=== PATIENT | female | born 1995 | race African-American/Black ===

== ENCOUNTER 2019-05-11 23:37 | Emergency (ER) | payer OTHER ==
[~2019-05-11] VITALS: Ht 180.3 cm; Wt 61.2 kg
[2019-05-12] MEDS ORDERED: KETO10TA2 PO (01:22)
== END 2019-05-12 02:34 | disposition home or self-care (01) ==
LOC: ER 23:37
DX: S62.347A Nondisplaced fracture of base of fifth metacarpal bone, left hand, initial encounter for closed fracture (principal); W22.8XXA Striking against or struck by other objects, initial encounter; Y93.89 Activity, other specified; Y92.89 Other specified places as the place of occurrence of the external cause; Y99.8 Other external cause status

== ENCOUNTER 2022-03-14 18:09 | Inpatient (IN) | payer OTHER ==
[~2022-03-14] VITALS: Ht 185.4 cm; Wt 68.0 kg
[~2022-03-14 18:09] MED LIST: KETO10TA2 PO
--- NOTE | 2022-03-14 18:24 | NUR ---
SE RECIBE MASCULINO INCOSCIENTE, PALIDO Y SUDOROSO EN [place] EN COMPANIA DE PADRE EL CUAL INDICA QUE AL LLEGAR AL APARMENTO DEL PTE LO ENCONTRO TUTTLE EN EL SUELO. REFIERE QUE PTE ES USUARIO DE HEROINA. SE UBICA A PTE EN AREA DE OBSERVACION Y SE NOTIFICA A .
--- NOTE | 2022-03-14 18:41 | NUR ---
PTE MASCULINO HIPOACTIVO EN COMPANIA DE PADRE ES EVALUADO POR . SE ORIENTA A FAMILIAR SOBRE ORDEN DE TX REFIERE COMPRENDER. SE EXTRAEN MUESTRAS DE LABORATORIOS Y SE CANALIZA VENA BAJO MEDIDAS ASEPTICAS. SE ADMINISTRAN MEDICAMENTOS, BAJO MEDIDAS ASEPTICAS. SE CONECTA A MONITOR CARDIACO Y OXIMETRAIA DE PULSO.
--- NOTE | 2022-03-15 00:22 | NUR ---
PACIENTE ALERTA, RESPONDE AL LLAMADO Y A ESTIMULOS DEL DOLOR EN SULAIMAN CON BARANDAS ELEVADAS. PADRE ACOMPANANDO AL PACIENTE. SE ORIENTA A PADRE SOBRE TX A RECIBIR Y PROCEDIMIENTO A REALIZAR Y REFIRIO ENTENDER. SE ADMINISTRA MEDICAMENTOS ORDENADOS POR . SE REALIZA MUESTRAS DE LABORATORIO BAJO MEDIDAS ASEPTICAS. CANALZIACION PATENTE Y GRETEL DE EDEMA Y ERITEMA EN BRAZO CARLOS. IV FLUID PATENTE. SE TRANSFIERE PACIENTE A UNIDAD DE DOLOR DE PECHO Y SE ENTREGA PACIENTE A [place] REYES DEL AREA. SE CONECTA A MONITOR CARDIACO Y OXIMETRIA DE PULSO. PACIENTE NO OBEDECE COMANDOS Y TIENE MOVIMIENTOS INVOLUNTARIO EN LA [place]. PENDIENTE MRI EN LA MANANA. NO SE REALIZO MUESTRA DE NIVELES DE FENTANYL DEBIDO A QUE EL PERSONAL DE LABORATORIO NADIA WEAVER REFIRIO QUE SOLO ES PARA PACIENTES ADMITIDOS.
--- NOTE | 2022-03-15 00:30 | NUR ---
SE RECIBE PTE DEL AREA DE OBSERVACION, EL CUAL LLEGA EN SULAIMAN JUNTO CON PERSONAL DE TRANSPORTE Y ERIC DE LOS SANTOS. SE OBSERVA PTE HIPOACTIVO, EL CUAL NO RESPONDE AL LLAMADO NI AL TACTO, SI RESPONDE AL ESTIMULO DEL DOLOR. SE OBSERVA CON MOVIMIENTOS INVOLUNTARIOS EN LA [place] Y CON HIPO INTERMITENTE. PTE ES UBICADO EN CAMA NIVEL MAS BAJO, CON BARANDAS ELEVADAS POR PROTECCION Y CONECTADO A MONITOR CARDIACO Y OXIMETRIA DE PULSO. AL MOMENTO PTE EN COMPANIA DE FAMILIAR (PADRE: KAISER JONES) EL CUAL SE ORIENTA SOBRE LAS NORMAS DE LA UNIDAD, [place] A REALIZAR AL PACIENTE Y PROCEDIMIENTOS EL CUAL REFIERE ENTENDER. AL MOMENTO PIEL TIBIA AL TACTO. SE OBSERVA PTE CON BUEN PATRON RESPIRATORIO, SATURANDO 97-100% NIKOLAY OXIMETRO DE PULSO. IV EN ANTEBRAZO LT PATENTE Y GRETEL DE EDEMA O ERITEMA RECIBIENDO 0.9% NSS + ZITHROMAX 500MG/250ML 0.9% @125ML/HR. SE COLOCA CHENG CON LA ASISTENCIA DE MS S COLON, NIKOLAY ORDEN MEDICA DE LA DRA CARRILLO, SIGUIENDO MEDIDAS ASEPTICAS Y ESTERILES, PTE NO SIGUE COMANDOS, TOLERA PROCEDIMIENTO CON UN EGRESO APROXIMADO DE 200ML COLOR AMARILLO, SE OBSERVA LEVE SEDIMENTO Y COAGULO. PENDIENTE A RESULTADOS DE LABORATORIO. PENDIENTE A REALIZAR MRI EN LA MANANA. PENDIENTE CONSULTA CON DR Marques QUINN (MEDICINA INTERNA). SE MANTIENE PTE BAJO OBSERVACION, EN CAMA NIVEL MAS BAJO, BARANDAS ELEVADAS POR PRECAUCION Y CONECTADO A MONITOR CARDIACO Y OXIMETRIA DE PULSO.
--- NOTE | 2022-03-15 02:50 | NUR ---
ABBE NOTIFICADOS A MS FORD.
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
== END 2022-03-22 11:14 | disposition home or self-care (01) | DRG 917 ==
LOC: ER 18:09 → EDSEX 03-15 10:04 → ICU-2 03-15 10:04 → ICU 03-16 21:01 → MEDJ 03-19 21:29
PROVIDERS: ADMIT Specialist; ATTEND Specialist
PROC: 02HV33Z Insertion of Infusion Device into Superior Vena Cava, Percutaneous Approach (ICD-10-PCS; 2022-03-15)
PROC: B24BZZZ Ultrasonography of Heart with Aorta (ICD-10-PCS; principal; 2022-03-16)
DX: T40.1X1A Poisoning by heroin, accidental (unintentional), initial encounter (principal); J69.0 Pneumonitis due to inhalation of food and vomit; G92.8 Other toxic encephalopathy; E87.3 Alkalosis; M62.82 Rhabdomyolysis; F14.23 Cocaine dependence with withdrawal; K92.2 Gastrointestinal hemorrhage, unspecified; T40.5X1A Poisoning by cocaine, accidental (unintentional), initial encounter; R55 Syncope and collapse; R00.0 Tachycardia, unspecified; R06.03 Acute respiratory distress; J10.1 Influenza due to other identified influenza virus with other respiratory manifestations; Z20.822 Contact with and (suspected) exposure to COVID-19; E86.0 Dehydration
CPT/HCPCS: 70544